=== PATIENT | female | born 1995 | race Caucasian/White ===

== ENCOUNTER 2017-11-27 22:35 | Emergency (ER) | END 2017-11-28 05:13 | disposition home or self-care (01) ==

== ENCOUNTER 2018-10-20 09:39 | Emergency (ER) | payer MEDICAID ==
[~2018-10-20] VITALS: Ht 157.5 cm; Wt 58.0 kg
[~2018-10-20 09:39] MED LIST: ACET500C5 PO; CALC-516 PO; FERR240T9 PO; IBUP-1542 PO; PREN-39 PO; TRAM50TA2 PO
[2018-10-20 09:51] VITALS: Ht 157.5 cm; Wt 58.0 kg
[2018-10-20] MEDS ORDERED: FAMOTIDINE 20 MG TAB PO STA (11:30)
[2018-10-20] MEDS ORDERED: SOD CHLORIDE 0.9% 1,000 ML IV STA (11:40)
[2018-10-20] MEDS ORDERED: ONDANSETRON 4 MG INJ IV STA (11:40)
[2018-10-20] MEDS ORDERED: morphine 2 MG INJ IV STA (11:40)
--- NOTE | 2018-10-20 11:40 | ERD ---
ER Documentation Chief Complaint Chief Complaint UPPER BACK PAIN RADIATING TO CHEST X 1 WEEK , PAIN WORSE WITH DEEP BREATH HPI This is a 23-year-old female with a nonsignificant past medical history presents ED with complaints of upper back pain that radiates to chest and epigastric region times 5 days. Patient states that the pain is made worse with eating and drinking and also with deep inspiration. Rates at 5 out of 10. Patient admits to some shortness of breath with deep inspiration. Denies having similar pain in the past. Admits to some nausea. Denies fever, chills, hemoptysis, hematemesis, vomiting, diarrhea, constipation, melena, hematochezia, cough, congestion, runny nose, ear pain, sputum production. Denies any fall or injury. Patient denies PE risk factors including recent surgery/immobilization, recent travel, smoking, prior hx of DVT, coagulopathy, hx of cancer, exogenous estrogen use, one sided lower extremity swelling, and lower extremity pain. Patient denies cardiac risk factors including: hypertension, diabetes mellitus, hypercholesterolemia, physical inactivity, smoking, hx of CAD, and prior stress/cath. ROS All systems reviewed and are negative except as per history of present illness. Medications Home Meds Active Scripts Tramadol HCl (Tramadol HCl) 50 Mg Tablet, 50 MG PO Q6 PRN for SEVERE PAIN LEVEL 7-10, #20 TAB Prov:JEFF TOVAR NP 11/28/17 Acetaminophen* (Tylophen*) 500 Mg Capsule, 1 CAP PO Q6H PRN for PAIN AND OR ELEVATED TEMP, #20 CAP Prov:JEFF TOVAR NP 11/28/17 Acetaminophen* (Tylophen*) 500 Mg Capsule, 1 CAP PO Q6H PRN for PAIN AND OR ELEVATED TEMP, #20 CAP Prov:LINDA MOLINA 05/21/15 Ibuprofen* (Ibuprofen*) 600 Mg Tab, 600 MG PO Q6, #20 0 Refills Prov:BINA SIMENTAL MD 04/06/15 Reported Medications Calcium Carbonate/Vitamin D3 (OYSTER SHELL CALCIUM TABLET) 1 Each Tablet, 1 EACH PO DAILY 04/05/15 Ferrous Gluconate (Iron) 1 Tab Tablet, 1 TAB PO DAILY 04/05/15 Vits W-Ca,Fe,Fa(<1MG) ( Vitamins) 1 Tab Tablet, 1 TAB PO DAILY 04/05/15 Allergies Allergies: Coded Allergies: No Known Drug Allergies (Verified Allergy, Unknown, 04/05/15) PMhx/Soc History of Surgery: No Anesthesia Reaction: No Hx Neurological Disorder: No Hx Respiratory Disorders: No Hx Cardiac Disorders: No Hx Psychiatric Problems: No Hx Miscellaneous Medical Probl: No Hx Alcohol Use: No Hx Substance Use: No Hx Tobacco Use: No FmHx Family History: No diabetes Physical Exam Vitals Vital Signs Date Temp Pulse Resp B/P (MAP) Pulse Ox O2 O2 Flow FiO2 Time Delivery Rate 10/20/18 98.7 80 18 142/64 98 09:51 (90) Physical Exam Physical Exam Vitals signs: Reviewed by me. General: Well developed, well nourished, in no acute distress. Patient is awake and alert. Head: Normocephalic, atraumatic. Eyes: Normal conjunctiva, Pupils PERRLA, EOM intact grossly ENT: Pharynx is clear, Moist mucous membranes, external ears, nose and mouth normal Neck: Supple, no masses, lymphadenopathy or JVD Respiratory: Clear to auscultation bilaterally with no wheezing, rhonchi, rales, no distress, no labored breathing, no retractions, no flail chest Chest: Pain is somewhat reproducible with palpation of sternal region Cardiovascular: RRR, no murmurs, rubs, or gallops Abdominal: Soft, nondistended, no peritoneal signs, no rigidity, no surgical abdomen, bowel sounds present all 4 quadrants, mild tenderness palpation in epigastric region, Bermeo sign negative, nontender in all other quadrants, v McBurney's point nontender, no rebound tenderness : Deferred Neurologic: Alert and oriented, moving all extremities, normal speech, no focal weakness, no cerebellar signs. Normal mentation Skin: warm and dry, No rash Psych: Normal mood Result Diagram: 10/20/18 1235 10/20/18 1235 Results 24 hrs Laboratory Tests Test 10/20/18 11:52 10/20/18 12:35 POC Beta HCG, Qualitative NEGATIVE White Blood Count 6.6 10^3/ul Red Blood Count 4.37 10^6/ul Hemoglobin 12.6 g/dl Hematocrit 39.0 % Mean Corpuscular Volume 89.2 fl Mean Corpuscular Hemoglobin 28.8 pg Mean Corpuscular Hemoglobin Concent 32.3 g/dl Red Cell Distribution Width 12.6 % Platelet Count 231 10^3/UL Mean Platelet Volume 12.1 fl Immature Granulocytes % 0.300 % Neutrophils % 61.0 % Lymphocytes % 29.6 % Monocytes % 6.3 % Eosinophils % 2.0 % Basophils % 0.8 % Nucleated Red Blood Cells % 0.0 /100WBC Immature Granulocytes # 0.020 10^3/ul Neutrophils # 4.1 10^3/ul Lymphocytes # 2.0 10^3/ul Monocytes # 0.4 10^3/ul Eosinophils # 0.1 10^3/ul Basophils # 0.1 10^3/ul Nucleated Red Blood Cells # 0.0 10^3/ul Urine Color STRAW Urine Clarity CLEAR Urine pH 8.0 Urine Specific Lee 1.004 Urine Ketones NEGATIVE mg/dL Urine Nitrite NEGATIVE mg/dL Urine Bilirubin NEGATIVE mg/dL Urine Urobilinogen NEGATIVE mg/dL Urine Leukocyte Esterase TRACE Yohan/ul Urine Microscopic RBC 0 /HPF Urine Microscopic WBC 1 /HPF Urine Bacteria FEW /HPF Urine Hemoglobin NEGATIVE mg/dL Urine Glucose NEGATIVE mg/dL Urine Total Protein NEGATIVE mg/dl Sodium Level 142 mmol/L Potassium Level 3.7 mmol/L Chloride Level 105 mmol/L Carbon Dioxide Level 27 mmol/L Anion Gap 10 Blood Urea Nitrogen 9 mg/dl Creatinine 0.45 mg/dl Est Glomerular Filtrat Rate mL/min > 60 mL/min Glucose Level 91 mg/dl Calcium Level 9.9 mg/dl Total Bilirubin 0.2 mg/dl Direct Bilirubin 0.00 mg/dl Indirect Bilirubin 0.2 mg/dl Aspartate Amino Transf (AST/SGOT) 25 IU/L Alanine Aminotransferase (ALT/SGPT) 14 IU/L Alkaline Phosphatase 81 IU/L Troponin I < 0.012 ng/ml Total Protein 8.2 g/dl Albumin 4.8 g/dl Globulin 3.40 g/dl Albumin/Globulin Ratio 1.41 Lipase 37 U/L Current Medications Medications Dose Sig/Kerwin Start Time Status Last (Trade) Ordered Route PRN Stop Time Admin Dose Reason Admin Famotidine 20 mg ONCE STAT 10/20/18 DC 10/20/18 (Pepcid) PO 11:30 10/20/18 12:33 11:35 Sodium 1,000 ml @ Q1H STAT 10/20/18 DC 10/20/18 Chloride 1,000 mls/hr IV 11:40 10/20/18 12:34 12:39 Morphine 2 mg ONCE STAT 10/20/18 DC 10/20/18 Sulfate IV 11:40 10/20/18 12:33 (morphine) 11:41 Ondansetron 4 mg ONCE STAT 10/20/18 DC 10/20/18 HCl (Zofran IV 11:40 10/20/18 12:33 Inj) 11:41 Procedures/MDM EKG, MONITORS, & DIAGNOSTIC IMAGING: [place] [address] Radiology Main Line: [phone] DIAGNOSTIC IMAGING REPORT Patient: CHITRA MERIDA : 1995 Age: 23 Sex: F MR #: [id number] DOS: 10/20/18 1130 Ordering MD: FELICIA NOGUEIRA PA-C Location: [facility] Room/Bed: PROCEDURE: US Abdomen. CLINICAL INDICATION: abdominal pain TECHNIQUE: Multiple real-time images were acquired of the patient's right upper quadrant abdomen and retroperitoneum utilizing a high resolution transducer. COMPARISON: None FINDINGS: The liver demonstrates normal echogenicity. The liver is normal in size and no focal solid lesions are seen. The liver measures 11.5 cm in length. The portal vein is patent with normal direction of flow. No intrahepatic biliary d ilatation is seen. No gallstones are identified within the gallbladder. There is no pericholecys tic fluid or gallbladder wall thickening. The common bile duct measures 2 mm in maximal dimension. The visualized portions of the pancreas are unremarkable. The tail of the pancreas is not seen. No free fluid is identified. The right kidney is normal in size, and demonstrate normal echogenicity and cortical thickness. The right kidney measures 10.1 cm in long dimension. There is no evidence of hydronephrosis. There are no kidney stones. RPTAT: AA IMPRESSION: Unremarkable right upper quadrant abdominal ultrasound. .Caio Langford MD, Date Time Electronically viewed and signed by .Caio Langford MD, on 10/20/2018 12:57 .S/ CC: FELICIA NOGUEIRA PA-C [id number] [place] [address] Radiology Main Line: [phone] DIAGNOSTIC IMAGING REPORT Patient: CHITRA MERIDA : 1995 Age: 23 Sex: F MR #: [id number] DOS: 10/20/18 1130 Ordering MD: FELICIA NOGUEIRA PA-C Location: [facility] Room/Bed: PROCEDURE: XR Chest. CLINICAL INDICATION: chest pain TECHNIQUE: Single frontal view of the chest was obtained COMPARISON: None FINDINGS: The heart and mediastinum are within normal limits. The lungs are clear. There is no pleural effusion or pneumothorax. RPTAT: AA IMPRESSION: No acute disease. .Caio Langford MD, MD Date Time Electronically viewed and signed by .Caio Langford MD, MD on 10/20/2018 12:58 .S/ CC: FELICIA NOGUEIRA PA-C [id number] LAB INTERPRETATION: CBC shows no evidence of hemorrhage or infection Chemistry shows no evidence of significant electrolyte abnormalities or renal insufficiency Liver function test shows no evidence of acute biliary or hepatic dysfunction Lipase shows no evidence of acute pancreatitis Urine negative Urinalysis shows 1 microscopic WBC and trace leukocyte esterase ER COURSE: The patient was given Pepcid IV normal saline, morphine and Zofran. The medication was well tolerated and the patient reports improvement in symptoms. The patient was stable throughout ED course. I kept the patient and/or family informed of laboratory and diagnostic imaging results throughout the emergency room course. The patient was promptly evaluated and a treatment plan was devised based on H&P and other data. This plan was discussed with the patient who agreed and had no further questions or concerns prior to discharge. MEDICAL DECISION MAKING: This is a 23-year-old female presents ED with complaints of back pain that radiates to the chest and epigastric region times 5 days. Pain is worsened with eating and drinking and also with deep inspiration. I considered costochondritis, endocarditis, pericarditis, pulmonary embolism, aortic dissection, pneumothorax, tension pneumothorax, pleural effusion, pneumonia, GERD, gastritis, gastroenteritis, heartburn, gallbladder etiology, among others. EKG is unremarkable. Per the PERC criteria PE cannot be ruled out, per the well score for PE patient scores 0 and is low risk. Patient has no fevers and the pain is not positional so doubt pericarditis or endocarditis. Patient is resting peacefully room and does not appear to be in severe pain so doubt aortic dissection. Chest x-ray is unremarkable. No evidence of pneumothorax, tension pneumothorax, pleural effusion, pneumonia among others. Given the patient is tender in the epigastric region I believe that this is likely more of an abdominal pain that is radiating upward. Considered causes of female-specific abdominal pain including pelvic inflammatory disease, tubo-ovarian abscess, Vyao-Udgl-Mdukxb, and ovarian torsion. Also considered causes of abdominal pain that are not gender-specific (e.g., appendicitis, volvulus, small bowel obstruction, mesenteric adenitis, acute cholecystitis/choledocholithiasis and other biliary pathology, etc.). Given location this is likely gastritis or GERD. Patient well-appearing with normal vital signs. No peritoneal signs and abdomen benign on multiple repeat examinations. Pt well hydrated. Laboratory testing and imaging here reviewed and normal. At this time there is no evidence of gastrointestinal emergency. No evidence of perforated viscus, appendicitis, small bowel obstruction, cholecystitis, pancreatitis, among others. Patient given strict return precautions for worsening pain, inability to eat/drink, fevers (temperature over 100.4F), or other concerns. Prior to discharge all questions answered. She agrees with treatment plan and understands strict return precautions. Follow-up for repeat abdominal exam within 12 hours. DISPOSITION PLAN: We discussed follow up with the patient's primary care doctor within 24 to 48 hours. Patient counseled regarding my diagnostic impression and care plan. Prior to discharge all questions answered. Pt agrees with treatment plan and understands strict return precautions. Precautionary instructions provided including instructions to return to the ER if not improving or for any worsening or changing symptoms or concerns. SPECIALIST FOLLOW UP RECOMMENDED: None Patient has been advised to follow up with primary care in 1-2 days. Disclaimer: Inadvertent spelling and grammatical errors are likely due to EHR/dictation software use and do not reflect on the overall quality of patient care. Also, please note that the electronic time recorded on this note does not necessarily reflect the actual time of the patient encounter. Blood Pressure Assessment: Patient's blood pressure was elevated (>120/80) but appears stable without evidence of hypertension emergency or urgency. The patient was counseled about the risks of hypertension and urged to pursue outpatient monitoring and therapy within a week with their primary care physician. Departure Diagnosis: Primary Impression: Epigastric pain Condition: Stable Patient Instructions: Epigastric Pain (Uncertain Cause), Gastritis (Adult), Gastritis Vs. Ulcer, Gerd (Adult) [facility] Additional Instructions: Paciente aconseja volver a Departamento de urgencias inmediatamente para sntomas nuevos o que empeoran . Paciente aconseja posteriores con el PCP en 1-2 prather . Paciente verbaliza la comprehensin y est de acuerdo con el tratamiento y el curso de accin. Si el paciente no tiene ninguna de atencin primaria pueden seguir con [facility] [address] [place] [address] o [facility] + [address] [address] FELICIA NOGUEIRA PA-C Oct 20, 2018 11:40
[2018-10-20] MEDS ORDERED: FAMO-96 PO (13:33)
[2018-10-20 13:51] VITALS: BP 108/61; PULSE 70; RESP 16
== END 2018-10-20 13:52 | disposition home or self-care (01) ==
LOC: FTE 09:39
DX: R10.13 Epigastric pain (principal)
CPT/HCPCS: 36415; 71045; 76705; 80053; 81001; 81025; 83690; 84484; 85025; 87086; 93005; 96361; 96374; 96375; J2270; J2405; J7030; Z7502; Z7610